=== PATIENT | female | born 1965 ===

== ENCOUNTER 2016-06-18 10:57 | Emergency (ER) | payer OTHER ==
[2016-06-18 11:56] VITALS: BP 152/95
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
--- NOTE | 2016-06-18 13:54 | XRay Report ---
LUMBOSACRAL SPINE, 3 VIEWS: History: Back pain Findings: The vertebral bodies, disk spaces and posterior elements are intact. No compression deformity or malalignment. The SI joints are symmetric and unremarkable. Impression: 1. No evidence for acute injury to the lumbar spine.
--- NOTE | 2016-06-18 13:54 | XRay Report ---
RIGHT KNEE, 3 views: History: Right knee pain. The bony architecture is intact without evidence of fracture or dislocation. No significant soft tissue abnormality is seen. IMPRESSION: Normal right knee.
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
[2016-06-18] MEDS: MOTRIN PO ONE (14:13)
== END 2016-06-18 15:12 | disposition home or self-care (01) ==
LOC: ED 10:57
DX: S39.012A Strain of muscle, fascia and tendon of lower back, initial encounter (principal); S86.911A Strain of unspecified muscle(s) and tendon(s) at lower leg level, right leg, initial encounter; I10 Essential (primary) hypertension; G43.909 Migraine, unspecified, not intractable, without status migrainosus; I20.9 Angina pectoris, unspecified; V43.52XA Car driver injured in collision with other type car in traffic accident, initial encounter; Y92.488 Other paved roadways as the place of occurrence of the external cause; Y93.89 Activity, other specified; Y99.8 Other external cause status
CPT/HCPCS: 72100